=== PATIENT | female | born 1990 | race Caucasian/White ===

== ENCOUNTER 2020-12-31 08:52 | Outpatient (CLI) | payer BC | END 2020-12-31 08:53 | disposition home or self-care (01) | LOC: CSHULT 08:52 | PROVIDERS: ATTEND Internal Medicine Gastroenterology | DX: R10.9 Unspecified abdominal pain (principal) | CPT/HCPCS: 93975 ==

== ENCOUNTER 2024-08-13 14:48 | Outpatient (CLI) | payer BC | END 2024-08-13 14:49 | disposition home or self-care (01) | LOC: CSHMRI 14:48 | PROVIDERS: ATTEND Family Medicine | DX: M54.12 Radiculopathy, cervical region (principal) | CPT/HCPCS: 72141 ==